=== PATIENT | female | born 1970 | race Caucasian/White ===

== ENCOUNTER → 2017-08-04 14:53 | Outpatient (CLI) | payer BC, SELFPAY ==
--- NOTE | 2017-08-04 15:04 | XR_ITS ---
XR foot LT min 3V COMPARISON: None HISTORY: Left foot pain TECHNIQUE: AP lateral and oblique views FINDINGS: The tarsal bones metatarsals and phalanges appear intact with no evidence of recent or old fracture. There is mild hallux valgus noted. The plantar arch is normal. There are small spurs of the calcaneus at insertion of plantar tendon and Achilles tendon. IMPRESSION: Calcaneal spurs and mild hallux valgus as noted
== END ==
PROVIDERS: PCP Internal Medicine; Visit Provider Internal Medicine
DX: M79.672 Pain in left foot (principal)
CPT/HCPCS: 73630

== ENCOUNTER → 2017-09-12 15:47 | Outpatient (CLI) | payer BC, SELFPAY ==
--- NOTE | 2017-09-12 15:48 | XR_ITS ---
XR foot wt bearing RT 3V HISTORY: ITS.REASON: foot pain ORDERING PHYSICIAN: Verona Ramirez DPM PATIENT AGE: 47 years COMPARISON: None FINDINGS: There is mild hallux valgus with first metatarsophalangeal angle of 24 degrees. No fracture or dislocation. Mild pes planus with mild hypertrophic changes along the dorsal aspect of the navicular. Small calcaneal spur is present which measures 6 mm. IMPRESSION: Mild hallux valgus and pes planus with minimal hypertrophic changes along the midfoot dorsally
--- NOTE | 2017-09-12 15:48 | XR_ITS ---
XR foot wt bearing LT 3V HISTORY: ITS.REASON: foot pain ORDERING PHYSICIAN: Verona Ramirez DPM PATIENT AGE: 47 years COMPARISON: None FINDINGS: Mild hallux the first metatarsophalangeal angle of 30 degrees. Minimal osteoarthritic change first metatarsophalangeal joint. Mild pes planus. Small calcaneal spurs present. No fracture or dislocation. No lytic or blastic change. IMPRESSION: Hallux valgus with pes planus and small calcaneal spur
== END ==
PROVIDERS: Visit Provider Podiatrist
DX: M79.673 Pain in unspecified foot (principal)
CPT/HCPCS: 73630

== ENCOUNTER → 2017-10-04 08:28 | Outpatient (CLI) | payer BC, SELFPAY ==
--- NOTE | 2017-10-04 08:28 | XR_ITS ---
XR foot wt bearing LT 3V HISTORY: Left foot pain ITS.REASON: pain ORDERING PHYSICIAN: Verona Ramirez DPM PATIENT AGE: 47 years COMPARISON: 09/12/2017 FINDINGS: No change mild hallux valgus with first metatarsophalangeal angle of 30 degrees with minimal osteoarthritic change of the first metatarsophalangeal joint and mild hypertrophic change of the distal first metatarsal. Pes planus once again noted with small calcaneal spur. No fracture or dislocation. IMPRESSION: No change hallux valgus with pes planus
== END ==
PROVIDERS: Visit Provider Podiatrist
DX: M79.672 Pain in left foot (principal)
CPT/HCPCS: 73630

== ENCOUNTER → 2019-10-05 10:11 | Outpatient (CLI) | payer BC, SELFPAY ==
--- NOTE | 2019-10-05 10:17 | XR_ITS ---
PROCEDURE: XR TOE LT MIN 2V CLINICAL INDICATION: INJURY TO LEFT GREAT TOE Pain COMPARISON: No exams were available for comparison FINDINGS: Hallux valgus with osteoarthritis of the 1st MTP joint and bunion formation at the distal aspect of the 1st metatarsal. No fracture or dislocation IMPRESSION: No acute finding Dictated by: Etienne Johansen MD 10/05/2019 10:44 Electronically signed by Etienne Johansen MD in [place] 10/05/2019 10:44
== END ==
PROVIDERS: PCP Internal Medicine; Referring Provider Internal Medicine; Visit Provider Internal Medicine
DX: S99.922A Unspecified injury of left foot, initial encounter (principal); M19.072 Primary osteoarthritis, left ankle and foot
CPT/HCPCS: 73660

== ENCOUNTER → 2021-06-01 13:26 | Outpatient (CLI) | payer BC, SELFPAY | PROVIDERS: Visit Provider Nurse Practitioner | DX: Z20.822 Contact with and (suspected) exposure to COVID-19 (principal) | CPT/HCPCS: C9803; U0003; U0005 ==

== ENCOUNTER 2021-10-22 13:10 | Emergency (ER) | payer BC, SELFPAY ==
[2021-10-22 14:08] VITALS: BP 149/91; PULSE 96; RESP 18; TEMP 36.6; O2SAT 95; BMI 43.0
--- NOTE | 2021-10-22 14:18 | HMH.EDUTC ---
[facility] Disposition Clinical Impression: Pharyngitis Qualifiers: Pharyngitis/tonsillitis etiology: unspecified etiology Qualified Code(s): J02.9 - Acute pharyngitis, unspecified Sinusitis Qualifiers: Sinusitis location: unspecified location Chronicity: acute Recurrence: non-recurrent Qualified Code(s): J01.90 - Acute sinusitis, unspecified Disposition: Home, Self-Care Condition on Discharge: Good Instructions: DI for Sinusitis, DI for Strep Throat Additional Instructions: Drink plenty of fluids. Take tylenol or ibuprofen for pain or fever. Take the medications as directed. Follow up with your regular doctor. GO TO THE ER FOR ANY WORSENING SYMPTOMS Quarantine until you know the results of your covid-19 test. Notify your school or workplace of your results and follow their instructions regarding return to work/school. The cough medication (promethazine dm) will make you drowsy, so don't drive or operate heavy machinery after taking it. Prescriptions: Promethazine/Dextromethorphan [Promethazine-Dm Syrup] 5 ml PO Q6HP PRN #240 ml PRN Reason: Cough Transmission Status: Received by [facility] Amoxicillin [Amoxicillin 875MG Tab] 875 mg PO Q12H #20 tab Transmission Status: Received by [facility] Benzonatate [Benzonatate 100mg cap] 100 mg PO TIDP PRN #30 cap PRN Reason: Cough Transmission Status: Received by [facility] Fluconazole [Diflucan 150mg tab] 150 mg PO ONCE #1 tab Transmission Status: Received by [facility] methylPREDNISolone [Medrol] 4 mg PO DIRECTED 6 Days #21 packet Transmission Status: Received by [facility] Referrals: Beto Wise MD [Primary Care Provider] - Time of Disposition: 14:49 Medical Decision Making - Medical Records Medical records reviewed: No: I reviewed the patient's medical records. - Edy Inquiry Pt receiving controlled substance: No Vital Signs: 10/22/21 14:08 10/22/21 15:00 Temperature 97.8 F 97.8 F Temperature Source Oral Pulse Rate 96 H Pulse Rate [Left] 96 H Respiratory Rate 18 18 Blood Pressure 149/91 H Blood Pressure [Right Arm] 149/91 H Blood Pressure Mean [Right Arm] 110 02 Sat by Pulse Oximetry 95 - Lab Data Lab results reviewed: Yes: I reviewed the patient's lab results. Lab Results 10/22/21 14:07: Group A Strep Rapid Negative [facility] HPI - General Stated complaint: sore throat, blisters Time Seen by Provider: 10/22/21 14:18 Description of Symptoms (Recalled from Triage Doc. by RN): patient comes in for sore throat with white patches and blisters in tongue. symptoms hae been going on for a week. HEENT Symptoms (Recalled from RN notes): Yes Resp Symptoms (Recalled from RN notes): No Skin Symptoms (Recalled from RN notes): No MS Symptoms (Recalled from RN notes): No Functional Status (Recalled from RN notes): wnl - History of Present Illness Provider Complaint: She states that for the past 3 days she has had worsening sore throat. She has sinus congestion also. She denies chest congestion, but she does have a dry cough. She denies any known exposure to someone with Covid-19. - Related Data Previous Rx's Medication Instructions Recorded diclofenac sodium 1 % topical gel 4 g TOPICAL QID #30 g 09/12/17 Amoxicillin [Amoxicillin 875MG 875 mg PO Q12H #20 tab 10/22/21 Tab] Benzonatate [Benzonatate 100mg 100 mg PO TIDP PRN #30 cap 10/22/21 cap] Fluconazole [Diflucan 150mg tab] 150 mg PO ONCE #1 tab 10/22/21 Promethazine/Dextromethorphan 5 ml PO Q6HP PRN #240 ml 10/22/21 [Promethazine-Dm Syrup] methylPREDNISolone [Medrol] 4 mg PO DIRECTED 6 Days #21 10/22/21 packet Allergies Allergy/AdvReac Type Severity Reaction Status Date / Time No Known Allergies Allergy Verified 10/22/21 14:11 - Worker's Comp Is this a Worker's Comp case?: No [facility] History - Hepatitis A Screen Attestation statement:: This patient has been screened fo
[2021-10-22 14:37] LABS: Strep Scrn Group A (Rapid) Negative (Negative)
[2021-10-22 15:00] VITALS: BP 149/91; PULSE 96; RESP 18; TEMP 36.6
== END 2021-10-22 15:02 | disposition home or self-care (01) ==
PROVIDERS: Emergency Provider Nurse Practitioner Family; PCP Internal Medicine
DX: J02.9 Acute pharyngitis, unspecified (principal); J01.90 Acute sinusitis, unspecified; R05.9 Cough, unspecified
CPT/HCPCS: 87430; 99212; C9803; G0463; U0003; U0005

== ENCOUNTER → 2021-11-03 10:45 | Outpatient (CLI) | payer BC, SELFPAY ==
--- NOTE | 2021-11-03 | CA_ITS ---
FINAL REPORT TECHNIQUE: Ultrasound images of the deep venous system were obtained from the left groin to the calf veins. CLINICAL HISTORY: Patient states she has bilateral edema with left leg worse than right. She states her right leg goes down at the end of the day but left hasn't been and is getting progressively worse over past couple of weeks. Denies trauma. obesity, smoking history. FINDINGS: The deep venous system is normally compressible. Normal flow is identified. IMPRESSION: No evidence of left lower extremity DVT. Reviewed, Interpreted and Dictated by Lázaro Valentine MD Transcribed by Ned Crooks Authenticated and [facility]
== END ==
PROVIDERS: PCP Internal Medicine; Visit Provider Internal Medicine
DX: M79.605 Pain in left leg (principal)
CPT/HCPCS: 93971

== ENCOUNTER → 2021-11-15 16:32 | Outpatient (CLI) | payer BC, SELFPAY ==
[2021-11-15 17:04] LABS: Basophils # 0.1 K/mm3 (0-0.2); Basophils % 1.7 % (0.1-2.0); Eosinophils # 0.1 K/mm3 (0.0-0.4); Eosinophils % 1.5 % (0.1-12.0); Hematocrit 45.6 % (37.0-47.0); Lymphocytes # 2.6 K/mm3 (0.7-4.5); Lymphocytes % 47.4 % (10-50); Mean Corpuscular HGB Conc 35.1 g/dL (31.8-35.4); Mean Corpuscular Hemoglobin 31.1 pg (27.0-31.2); Mean Corpuscular Volume 88.5 fl (81-99); Mean Platelet Volume 8.5 fl (7.4-10.4); Monocytes # 0.3 K/mm3 (0.1-1.0); Monocytes % 5.4 % (1.7-9.3); Neutrophils # 2.4 K/mm3 (1.8-7.8); Platelet Count 180 K/mm3 (142-424); Red Blood Count 5.16 M/mm3 (4.20-5.40); Red Cell Distribution Width 12.6 % (11.5-17.5); White Blood Count 5.4 K/mm3 (4.8-10.8)
[2021-11-15 17:15] LABS: Creatinine,Urine Random 109 mg/dL (Not Estab.); Microalbumin < 6.000 mg/L (0-16.7)
[2021-11-15 17:32] LABS: Alanine Aminotransferase 41 U/L (12-78); Albumin Level 3.9 g/dl (3.5-5.0); Albumin/Globulin Ratio 1.3 (1.1-1.8); Alkaline Phosphatase 81 U/L (38-126); Anion Gap 11.1 mEq/L (5-15); Aspartate Amino Transferase 37 U/L (14-36); Bilirubin,Total 0.6 mg/dl (0.2-1.3); Blood Urea Nitrogen 8 mg/dl (7-17); Calcium 8.9 mg/dl (8.4-10.2); Carbon Dioxide 26 mmol/L (22.0-30.0); Chloride 99 mmol/L (98-107); Chol/HDL Ratio 6.2 (1-3.5); Cholesterol 168 mg/dl (140-200); Estimated Glomerular Filt Rate 105 ml/min (>60); GFR (African American) 127 ML/MIN (>60); Glucose 331 mg/dl (74-100); HDL Cholesterol 27 mg/dl (40-60); Potassium 4.1 mmoL/L (3.5-5.1); Sodium 132 mmol/L (136-145); Total Protein,Serum 6.9 g/dl (6.3-8.2); Triglycerides 191 mg/dl (30-150); VLDL Cholesterol 38 mg/dL (0-40)
[2021-11-15 17:43] LABS: Direct LDL Cholesterol 114.05 mg/dL (100-129)
[2021-11-15 17:44] LABS: Hemoglobin A1C 11.7 % (4.0-6.0)
[2021-11-15 18:02] LABS: Thyroid Stimulating Hormone 1.59 uIU/mL (0.465-4.68)
== END ==
PROVIDERS: PCP Internal Medicine; Visit Provider Internal Medicine
DX: I87.2 Venous insufficiency (chronic) (peripheral) (principal); I89.0 Lymphedema, not elsewhere classified; R73.9 Hyperglycemia, unspecified; E78.5 Hyperlipidemia, unspecified; E66.2 Morbid (severe) obesity with alveolar hypoventilation
CPT/HCPCS: 80053; 80061; 82043; 82570; 83036; 84443; 85025

== ENCOUNTER → 2022-05-09 13:20 | Outpatient (CLI) | payer BC, SELFPAY ==
[2022-05-09 16:27] LABS: Albumin Level 4.2 g/dl (3.5-5.0); Albumin/Globulin Ratio 1.4 (1.1-1.8); Alkaline Phosphatase 48 U/L (38-126); Anion Gap 11.1 mEq/L (5-15); Bilirubin,Total 0.5 mg/dl (0.2-1.3); Blood Urea Nitrogen 15 mg/dl (7-17); Calcium 8.6 mg/dl (8.4-10.2); Carbon Dioxide 22 mmol/L (22.0-30.0); Chloride 103 mmol/L (98-107); Chol/HDL Ratio 5.6 (1-3.5); Cholesterol 189 mg/dl (140-200); Estimated Glomerular Filt Rate 88 ml/min (>60); GFR (African American) 106 ML/MIN (>60); Globulin 2.9 g/dL (1.3-3.2); Glucose 78 mg/dl (74-100); HDL Cholesterol 34 mg/dl (40-60); Potassium 4.1 mmoL/L (3.5-5.1); Sodium 132 mmol/L (136-145); Total Protein,Serum 7.1 g/dl (6.3-8.2); Triglycerides 230 mg/dl (30-150); VLDL Cholesterol 46 mg/dL (0-40)
[2022-05-09 16:30] LABS: Alanine Aminotransferase 24 U/L (12-78); Aspartate Amino Transferase 25 U/L (14-36)
[2022-05-09 16:39] LABS: Direct LDL Cholesterol 108.09 mg/dL (100-129)
[2022-05-09 17:56] LABS: Hemoglobin A1C 5.6 % (4.0-6.0)
== END ==
PROVIDERS: PCP Internal Medicine; Visit Provider Internal Medicine
DX: I87.2 Venous insufficiency (chronic) (peripheral) (principal); E11.9 Type 2 diabetes mellitus without complications; E78.5 Hyperlipidemia, unspecified; I89.0 Lymphedema, not elsewhere classified
CPT/HCPCS: 80053; 80061; 83036

== ENCOUNTER → 2022-11-07 12:37 | Outpatient (CLI) | payer BC, SELFPAY ==
[2022-11-07 14:02] LABS: Creatinine,Urine Random 133 mg/dL (Not Estab.); Microalbumin < 6.000 mg/L (0-16.7)
[2022-11-07 14:07] LABS: Basophils # 0.1 K/mm3 (0-0.2); Basophils % 0.7 % (0.1-2.0); Eosinophils # 0.1 K/mm3 (0.0-0.4); Eosinophils % 1.6 % (0.1-12.0); Hematocrit 44.5 % (37.0-47.0); Hemoglobin 15.1 g/dL (12.2-16.2); Lymphocytes # 2.4 K/mm3 (0.7-4.5); Lymphocytes % 32.6 % (10-50); Mean Corpuscular HGB Conc 33.9 g/dL (31.8-35.4); Mean Corpuscular Hemoglobin 30.2 pg (27.0-31.2); Mean Platelet Volume 9.6 fl (7.4-10.4); Monocytes # 0.3 K/mm3 (0.1-1.0); Monocytes % 4.6 % (1.7-9.3); Neutrophils # 4.5 K/mm3 (1.8-7.8); Neutrophils % 60.4 % (37.0-80.0); Platelet Count 192 K/mm3 (142-424); Red Blood Count 5.01 M/mm3 (4.20-5.40); Red Cell Distribution Width 12.8 % (11.5-17.5); White Blood Count 7.4 K/mm3 (4.8-10.8)
[2022-11-07 14:41] LABS: Chloride 102 mmol/L (98-107); Sodium 138 mmol/L (136-145)
[2022-11-07 14:44] LABS: Alanine Aminotransferase 21 U/L (12-78); Albumin Level 3.9 g/dl (3.5-5.0); Albumin/Globulin Ratio 1.3 (1.1-1.8); Alkaline Phosphatase 63 U/L (38-126); Aspartate Amino Transferase 19 U/L (14-36); Bilirubin,Total 0.5 mg/dl (0.2-1.3); Blood Urea Nitrogen 12 mg/dl (7-17); Carbon Dioxide 29 mmol/L (22.0-30.0); Estimated Glomerular Filt Rate 75 ml/min (>60); GFR (African American) 91 ML/MIN (>60); Glucose 84 mg/dl (74-100); Total Protein,Serum 6.9 g/dl (6.3-8.2)
[2022-11-07 15:30] LABS: Hemoglobin A1C 5.4 % (4.0-6.0)
[2022-11-08 09:58] LABS: Chol/HDL Ratio 2.9 (1-3.5); Cholesterol 101 mg/dl (140-200); HDL Cholesterol 35 mg/dl (40-60); Triglycerides 150 mg/dl (30-150); VLDL Cholesterol 30 mg/dL (0-40)
[2022-11-08 10:09] LABS: Direct LDL Cholesterol 51.69 mg/dL (100-129)
== END ==
PROVIDERS: PCP Internal Medicine; Visit Provider Internal Medicine
DX: E11.9 Type 2 diabetes mellitus without complications (principal); E78.5 Hyperlipidemia, unspecified; I89.0 Lymphedema, not elsewhere classified; I87.2 Venous insufficiency (chronic) (peripheral)
CPT/HCPCS: 80053; 80061; 82043; 82570; 83036; 85025

== ENCOUNTER 2023-05-08 12:47 | Outpatient (CLI) | payer BC, SELFPAY ==
[2023-05-08 13:24] LABS: Chloride 104 mmol/L (98-107); Potassium 4.1 mmoL/L (3.5-5.1); Sodium 138 mmol/L (136-145)
[2023-05-08 13:26] LABS: Alanine Aminotransferase 24 U/L (12-78); Alkaline Phosphatase 51 U/L (38-126); Aspartate Amino Transferase 23 U/L (14-36); Bilirubin,Total 0.5 mg/dl (0.2-1.3); Blood Urea Nitrogen 10 mg/dl (7-17); Estimated Glomerular Filt Rate 87 ml/min (>60); GFR (African American) 106 ML/MIN (>60)
[2023-05-08 13:27] LABS: Albumin/Globulin Ratio 1.4 (1.1-1.8); Anion Gap 10.1 mEq/L (5-15); Calcium 8.5 mg/dl (8.4-10.2); Carbon Dioxide 28 mmol/L (22.0-30.0); Chol/HDL Ratio 3.6 (1-3.5); Cholesterol 121 mg/dl (140-200); Globulin 2.8 g/dL (1.3-3.2); Glucose 110 mg/dl (74-100); HDL Cholesterol 34 mg/dl (40-60); Total Protein,Serum 6.8 g/dl (6.3-8.2); Triglycerides 172 mg/dl (30-150); VLDL Cholesterol 34 mg/dL (0-40)
[2023-05-08 13:39] LABS: Direct LDL Cholesterol 66.58 mg/dL (100-129)
[2023-05-08 14:09] LABS: Hemoglobin A1C 5.9 % (4.0-6.0)
== END 2023-05-08 23:59 ==
LOC: LAB.DROPOF 12:48
PROVIDERS: PCP Internal Medicine; Visit Provider Internal Medicine
DX: E11.9 Type 2 diabetes mellitus without complications (principal); E78.5 Hyperlipidemia, unspecified; I87.2 Venous insufficiency (chronic) (peripheral); I89.0 Lymphedema, not elsewhere classified
CPT/HCPCS: 80053; 80061; 83036

== ENCOUNTER 2023-11-06 10:00 | Outpatient (CLI) | payer BC, SELFPAY ==
[2023-11-06 17:37] LABS: Basophils # 0.1 K/mm3 (0-0.2); Basophils % 1.5 % (0.1-2.0); Eosinophils # 0.1 K/mm3 (0.0-0.4); Eosinophils % 1.8 % (0.1-12.0); Hematocrit 43.2 % (37.0-47.0); Hemoglobin 14.8 g/dL (12.2-16.2); Lymphocytes # 2.4 K/mm3 (0.7-4.5); Lymphocytes % 40.8 % (10-50); Mean Corpuscular HGB Conc 34.3 g/dL (31.8-35.4); Mean Corpuscular Volume 93.4 fl (81-99); Mean Platelet Volume 9.9 fl (7.4-10.4); Monocytes # 0.3 K/mm3 (0.1-1.0); Monocytes % 4.6 % (1.7-9.3); Neutrophils % 51.2 % (37.0-80.0); Platelet Count 175 K/mm3 (142-424); Red Blood Count 4.63 M/mm3 (4.20-5.40); Red Cell Distribution Width 13.3 % (11.5-17.5); White Blood Count 5.8 K/mm3 (4.8-10.8)
[2023-11-06 17:54] LABS: Chloride 104 mmol/L (98-107); Sodium 136 mmol/L (136-145)
[2023-11-06 17:55] LABS: Potassium 3.8 mmoL/L (3.5-5.1)
[2023-11-06 17:57] LABS: Alanine Aminotransferase 30 U/L (12-78); Albumin Level 4.3 g/dl (3.5-5.0); Albumin/Globulin Ratio 1.4 (1.1-1.8); Alkaline Phosphatase 58 U/L (38-126); Anion Gap 12.8 mEq/L (5-15); Aspartate Amino Transferase 32 U/L (14-36); Bilirubin,Total 0.7 mg/dl (0.2-1.3); Blood Urea Nitrogen 13 mg/dl (7-17); Carbon Dioxide 23 mmol/L (22.0-30.0); Cholesterol 111 mg/dl (140-200); Estimated Glomerular Filt Rate 104 ml/min (>60); GFR (African American) 126 ML/MIN (>60); Globulin 3.1 g/dL (1.3-3.2); Glucose 189 mg/dl (74-100); Total Protein,Serum 7.4 g/dl (6.3-8.2); Triglycerides 224 mg/dl (30-150); VLDL Cholesterol 45 mg/dL (0-40)
[2023-11-06 17:58] LABS: Chol/HDL Ratio 3.3 (1-3.5); HDL Cholesterol 34 mg/dl (40-60); Magnesium 1.6 mg/dl (1.6-2.3)
[2023-11-06 18:08] LABS: Direct LDL Cholesterol 47.66 mg/dL (100-129)
[2023-11-06 19:33] LABS: Hemoglobin A1C 8.2 % (4.0-6.0)
== END 2023-11-06 23:59 | disposition home or self-care (01) ==
LOC: LAB.DROPOF 11-07 08:23
PROVIDERS: PCP Internal Medicine; Visit Provider Internal Medicine
DX: E78.5 Hyperlipidemia, unspecified (principal); E11.9 Type 2 diabetes mellitus without complications; Z79.84 Long term (current) use of oral hypoglycemic drugs; R25.2 Cramp and spasm; E66.01 Morbid (severe) obesity due to excess calories; Z68.42 Body mass index [BMI] 45.0-49.9, adult
CPT/HCPCS: 80053; 80061; 83036; 83735; 85025

== ENCOUNTER 2024-05-06 10:35 | Outpatient (CLI) | payer BC, SELFPAY ==
[2024-05-06 17:19] LABS: Creatinine,Urine Random 171 mg/dL (Not Estab.)
[2024-05-06 17:20] LABS: Microalbumin/Creatinine Ratio 6.9
[2024-05-06 17:23] LABS: Hemoglobin A1C 6.8 % (4.0-6.0)
[2024-05-06 17:43] LABS: Albumin Level 4.3 g/dl (3.5-5.0); Chloride 101 mmol/L (98-107); Potassium 4.2 mmoL/L (3.5-5.1); Sodium 136 mmol/L (136-145)
[2024-05-06 17:46] LABS: Alanine Aminotransferase 43 U/L (12-78); Alkaline Phosphatase 50 U/L (38-126); Aspartate Amino Transferase 41 U/L (14-36); Bilirubin,Total 0.6 mg/dl (0.2-1.3); Blood Urea Nitrogen 12 mg/dl (7-17); Carbon Dioxide 28 mmol/L (22.0-30.0); Cholesterol 108 mg/dl (140-200); Estimated Glomerular Filt Rate 104 ml/min (>60); GFR (African American) 126 ML/MIN (>60); Glucose 124 mg/dl (74-100); Total Protein,Serum 7.2 g/dl (6.3-8.2); Triglycerides 145 mg/dl (30-150); VLDL Cholesterol 29 mg/dL (0-40)
[2024-05-06 17:47] LABS: Chol/HDL Ratio 3.4 (1-3.5); HDL Cholesterol 32 mg/dl (40-60)
[2024-05-06 17:57] LABS: Direct LDL Cholesterol 53.47 mg/dL (100-129)
[2024-05-06 21:28] LABS: Albumin/Globulin Ratio 1.5 (1.1-1.8); Anion Gap 11.2 mEq/L (5-15); Globulin 2.9 g/dL (1.3-3.2)
== END 2024-05-06 23:59 | disposition home or self-care (01) ==
LOC: LAB.DROPOF 05-07 13:27
PROVIDERS: PCP Internal Medicine; Visit Provider Internal Medicine
DX: E78.5 Hyperlipidemia, unspecified (principal); I89.0 Lymphedema, not elsewhere classified; E11.9 Type 2 diabetes mellitus without complications; Z79.84 Long term (current) use of oral hypoglycemic drugs
CPT/HCPCS: 80053; 80061; 82043; 82570; 83036

== ENCOUNTER 2024-05-14 15:22 | Outpatient (CLI) | payer BC, SELFPAY ==
--- NOTE | 2024-05-14 15:23 | MM_ITS ---
PROCEDURE INFORMATION: Exam: Bilateral Screening 3D Mammography Exam date and time: 05/14/2024 3:13 PM Age: 54 years old Clinical indication: Screening examination TECHNIQUE: Imaging protocol: Bilateral Screening tomosynthesis and 2D mammography including computer-aided detection (CAD) when performed. COMPARISON: SCREENING MAMMO DIGITAL W/ CAD 05/08/2008 3:46 PM FINDINGS: MAMMOGRAPHY: Breast composition: The breasts are almost entirely fatty. Mass: None. Architectural distortion: None. Calcifications: No suspicious calcifications. Asymmetric density: None. Skin thickening: None. Axillary adenopathy: None. IMPRESSION: No mammographic evidence of malignancy. Annual screening is recommended unless otherwise clinically indicated. ASSESSMENT: BI-RADS Category 1: Negative.
== END 2024-05-14 23:59 | disposition home or self-care (01) ==
LOC: RAD 15:23
PROVIDERS: PCP Internal Medicine; Visit Provider Internal Medicine
DX: Z12.31 Encounter for screening mammogram for malignant neoplasm of breast (principal)
CPT/HCPCS: 77063; 77067

== ENCOUNTER 2024-10-24 09:47 | Outpatient (CLI) | payer BC, SELFPAY ==
[2024-10-24 15:10] LABS: Hematocrit 40.4 % (37.0-47.0); Hemoglobin 14.2 g/dL (12.2-16.2); Immature Granulocytes % 0.2 %; Mean Corpuscular HGB Conc 35.1 g/dL (31.8-35.4); Mean Corpuscular Hemoglobin 31.1 pg (27.0-31.2); Mean Corpuscular Volume 88.6 fl (81-99); Nucleated Red Blood Cells % 0 %; Platelet Count 175 K/mm3 (142-424); Red Blood Count 4.56 M/mm3 (4.20-5.40); Red Cell Distribution Width-SD 38.7 fL; White Blood Count 5.4 K/mm3 (4.8-10.8)
[2024-10-24 15:43] LABS: Alanine Aminotransferase 44 U/L (12-78); Albumin Level 4.3 g/dl (3.5-5.0); Albumin/Globulin Ratio 1.5 (1.1-1.8); Alkaline Phosphatase 47 U/L (38-126); Anion Gap 14.1 mEq/L (5-15); Aspartate Amino Transferase 49 U/L (14-36); Bilirubin,Total 0.9 mg/dl (0.2-1.3); Blood Urea Nitrogen 10 mg/dl (7-17); Calcium 8.9 mg/dl (8.4-10.2); Carbon Dioxide 27 mmol/L (22.0-30.0); Chloride 100 mmol/L (98-107); Cholesterol 101 mg/dl (140-200); Creatinine,Serum 0.60 mg/dl (0.52-1.04); Estimated Glomerular Filt Rate 104 ml/min (>60); GFR (African American) 126 ML/MIN (>60); Globulin 2.8 g/dL (1.3-3.2); Glucose 150 mg/dl (74-100); HDL Cholesterol 29 mg/dl (40-60); Potassium 4.1 mmoL/L (3.5-5.1); Sodium 137 mmol/L (136-145); Total Protein,Serum 7.1 g/dl (6.3-8.2); Triglycerides 172 mg/dl (30-150)
[2024-10-24 18:10] LABS: Hemoglobin A1C 8.4 % (4.0-6.0)
--- OUTSIDE RECORDS SUMMARY | 2024-10-28 09:58 | XMS_ITS | Clinical Summary ---
Author Organization Healthcare Address [address] [place] [address] Care Team Providers Care Imaging Specialist Name Role Phone Unavailable Primary Care Provider Unavailabl e Immunizations Immunization Administration Dates Next Due Influenza, injectable, quadrivalent, preservativ e free 02/12/2021 Aptara COVID-19 Vaccine (Purple Cap) 12 + 02/12/2021 Social History Tobacco Use Types Packs/Day Years Used Date Smoking Tobacco: Never Assessed Comments Unknown Sex and Gender Information Value Date Recorded Sex Assigned at Female 01/15/2022 11:58 AM EDT Legal Sex Female 8:01 PM EDT Gender Identity Female 01/15/2022 11:58 AM EDT Sexual Orientation Straight 01/15/2022 11 :58 AM EDT Plan of Treatment Health Maintenance Due Date Last Done Comments [facility]-Depression Screening 1970 [facility]-/Child/Adol SDOH Screenings 1970 [facility]- SDOH Screenings 1987 [facility]-Adult SDOH Screenings 1987 [facility]-DTaP,Tdap,and Td Vaccines (1 - Tdap) 02/18/1988 [facility]-Hepatitis B Vaccines (1 of 3 - 19+ 3-dose series) 02/18/1988 [facility]-Pap Smear 05/01/2011 05/01/2008, 03/14/2006 [facility]-Cervical Cancer Screening 05/01/2013 [facility]-HPV/Cotest 05/01/2013 05/01/2008, 03/14/2006 CT Colonography 2014 Colonoscopy 2014 FIT-DNA 2014 FIT 2014 FOBT 2014 Sigmoidoscopy 2014 [facility]-Colorectal Cancer Screening 2014 [facility]-Pneumococcal Vaccine: 50+ Years (1 of 1 - PCV) 2019 [facility]-Zoster Vaccines (1 of 2) 2019 TIP-[id number]-11 Vaccine ( season) 2023 01/15/2022, 07/27/2021, 02/12/2021, Additional history exists [facility]-Influenza Vaccine (#1) 2024 01/15/2022, HPV Vaccines Aged Out No longer eligi ble based on patient's age to complete this topic [facility]-HIB Vaccines Aged Out No longer e ligible based on patient's age to complete this topic [facility]-Hepatitis A Vaccines Aged Out No longer eligible based on patient's age to complete this topic [facility]-IPV Vaccines Aged Out No longer e ligible based on patient's age to complete this topic [facility]-Rotavirus Vaccines Aged Out No lo nger eligible based on patient's age to complete this topic Procedures Procedure Name Priority Date/Time Associated Diagnosis Comments CYTO DATA CONVERSION Routine 05/01/2008 12:00 AM EST from Last 3 Months or Most Recently Relevant to Health Maintenance Results * Cytology (05/01/2008 12:00 AM EST) 05/01/2008 05/02/2008 3:1 6 PM EST Narrative [facility] - 05/06/2008 1:05 PM EST [facility] MR #: [id number] [facility] [address], [place] [address] 1970 (Age: 38) FW Collect Date: 05/01/2008 00:00 Receipt Date: 05/02/2008 15:16 Page 1 DEPARTMENT OF PATHOLOGY AND LABORATORY MEDICINE CYTOPATHOLOGY REPORT Email: [email or web address] [id number] ATTENDING MD/Practitioner: Alexandr Tsang MD Service: [facility] Location: [facility] Reported: 05/06/2008 13:05 Collected: 05/01/2008 00:00 INTERPRETATION A. THIN PREP (VAGINAL): NEGATIVE FOR INTRAEPITHELIAL LESION OR MALIGNANCY. SATISFACTORY FOR EVALUATION. Slide examined with [employer]ix ThinPrep Imaging System but manually screened for technical reasons. Electronically Signed Out By MARÍA ELENA Walden(ASCP) MARÍA ELENA Walden(ASCP) Cervical cytology is a screening test primarily for squamous cancers and precursors and has associated false negative and positive results. New technologies such as liquid based sampling may decrease but will not eliminate all false negative results. Regular screening and follow-up of unexplained clinical signs and symptoms are recommended to minimize false negative results. Please see the ASCCP website (www.asccp.org) for followup recommendations. If HPV testing was requested, correlation with the results is suggested (please call Microbiology at [phone] for results). CLINICAL INFORMATION: Menstrual History: Post-hysterectomy Date of Last Menstrual Period: {Not Provided} Other Clinical Conditions: If ASCUS and > 24 years of age, HPV/DNA testing requested. SPECIMEN DESCRIPTION: A: THIN PREP (VAGINAL) THIN PREP PROCESS CELLULAR ENHANCEMENT ICD: V76.47 VAGINA, SPECIAL SCREENING FOR MALIGNANT NEOPLASMS F: A; RT IMAGE [id number] SNOMED CODES: A; [id number] In cases where a pathologist has signed out the report, the service has been rendered in part by a resident. The signing pathologist has performed and is responsible for the reported pathologic evaluation. Vish Tsang MD LAB PATHOLOGY ORDERABLES Final Result [facility] from Last 3 Months or Most Recently Relevant to Health Maintenance Insurance RAMYA
== END 2024-10-24 23:59 | disposition home or self-care (01) ==
LOC: LAB.DROPOF 10-28 09:47
PROVIDERS: PCP Internal Medicine; Visit Provider Internal Medicine
DX: E11.9 Type 2 diabetes mellitus without complications (principal); E78.5 Hyperlipidemia, unspecified; E66.01 Morbid (severe) obesity due to excess calories
CPT/HCPCS: 80053; 80061; 83036; 85025